=== PATIENT | female | born 1960 | race Caucasian/White ===

== ENCOUNTER 2020-07-04 10:52 | Emergency (ER) | payer BC, SELFPAY ==
[2020-07-04] VITALS (11 sets, daily range): BP systolic 117–149; BP diastolic 55–67; PULSE 75–91; RESP 14–20; TEMP 37.2–38.3; O2SAT 94–100; BMI 29.6
[2020-07-04 11:32] LABS: Bacteria Urine Many (>30); Culture Indicated Urine Cult Not Indicated; RBC Urine 5-10/HPF (0-5/HPF); Squamous Epithelial Cell Urine 1-5 /HPF (0-5/HPF); WBC Urine 0-1/HPF (0-5/HPF)
[2020-07-04 11:35] LABS: Add Manual Diff / Slide Review NO; Basophils Absolute Auto 100 /uL (0-100); Basophils Percent Auto 0.9 % (0-2); Eosinophils Absolute Auto 0 /uL (0-450); Eosinophils Percent Auto 0.1 % (2-4); Hematocrit 40.9 % (36-46); Hemoglobin 13.8 g/dL (12.0-16.0); Lymphocytes Absolute Auto 1500 /uL (1100-4500); Lymphocytes Percent Auto 9.7 % (25-40); Mean Corpuscular HGB Conc 33.8 % (30-36); Mean Corpuscular Hemoglobin 31.2 PG (26-34); Mean Corpuscular Volume 92.2 fL (80-100); Monocytes Absolute Auto 1100 /uL (0-900); Neutrophils Absolute Auto 13000 /uL (1500-7000); Neutrophils Percent Auto 82.3 % (50-75); Platelet Count 278 X10^3/uL (150-400); Red Blood Cell Count 4.43 X10^6/uL (4.0-5.2); Red Cell Distribution Width 12.7 % (11.6-14.8); White Blood Cell Count 15.8 X10^3/uL (4.5-11.0)
[2020-07-04 11:38] LABS: Lactate (Lactic Acid) 1.8 mmol/L (0.7-2.1)
[2020-07-04 11:39] LABS: Alanine Aminotransferase 34 IU/L (<35); Albumin 4.4 g/dL (3.5-5.0); Albumin Globulin Ratio 1.3 (1.0-2.8); Alkaline Phosphatase 97 U/L (38-126); Amylase 55 U/L (30-110); Aspartate Aminotransferase 30 IU/L (14-36); BUN Creatinine Ratio 21.8 (6-22); Bilirubin Total 0.7 mg/dL (0.2-1.3); Blood Urea Nitrogen 17 mg/dL (7-17); Calcium 9.5 mg/dL (8.4-10.2); Carbon Dioxide 26 mmol/L (22-32); Chloride 103 mmol/L (98-107); Estimated Glomerular Filt Rate > 60.0 mL/min (>60); Globulin 3.3 g/dL (1.7-4.1); Glucose 111 mg/dL (70-100); HEMOLYSIS < 15 (0-50); Lipase 38 U/L (23-300); Sodium 137 mmol/L (137-145); Total Protein 7.7 g/dL (6.3-8.2)
--- NOTE | 2020-07-04 11:47 | ED.FEMALEGU ---
HPI - Female Genitourinary <CHAPARRO Kendrick-BC - Last Filed: 07/04/20 17:58> General Chief complaint: Urogenital-Female Stated complaint: lower back pain,right side Time Seen by Provider: 07/04/20 11:13 Source: patient and family Mode of arrival: Ambulatory Limitations: no limitations History of Present Illness HPI Narrative: The patient is a 59-year-old female with history of depression who presents with her for chief complaint of right-sided lower back pain. Started about 4 days ago, radiates around her right side lower abdomen. She denies any fevers, nausea vomiting or diarrhea. She denies any muscle aches or chills. She states she is eating and drinking okay, last oral intake last night. She took Tylenol once yesterday for the pain, otherwise has not taken anything. She has a remote history of pyelonephritis, states that this feels a bit different. She denies any previous history of kidney stones, though notes that her daughter has had kidney stones. The pain radiates around her right lower abdomen. She states she does have history of a hysterectomy. Related Data Previous Rx's Medication Instructions Recorded ketorolac 10 mg PO TID PRN #15 tab 07/04/20 lidocaine 1 patch TOP DAILY PRN #15 each 07/04/20 sulfamethoxazole-trimethoprim 1 tab PO BID #14 tab 07/04/20 [Bactrim DS] Allergies Allergy/AdvReac Type Severity Reaction Status Date / Time No Known Drug Allergies Allergy Verified 07/04/20 11:02 Review of Systems <FLORES Kendrick - Last Filed: 07/04/20 17:58> Review of Systems Narrative: GENERAL: Denies chills, fatigue, malaise, fever, sweats. HEENT: Denies sinus pain, ear pain, sore throat, difficulty swallowing, dizziness. RESPIRATORY: Denies dyspnea, cough, wheezing, hemoptysis, sputum. CARDIOVASCULAR: Denies chest pain, palpitations, orthopnea, edema, GASTROINTESTINAL: See HPI : See HPI MUSCULOSKELETAL: denies weakness, joint pain, or bony pain SKIN: Denies rash, skin lesions, or other NEUROLOGIC: Denies weakness, headache, numbness, change in speech, confusion, seizures, incoordination. PSYCHIATRIC: No concerning psychosocial issues. 12 point review of systems is negative except for those stated above Patient History <LOUISE Kendrick - Last Filed: 07/04/20 17:58> Medical History (Updated 07/04/20 @ 15:53 by LOUISE Kendrick) Depression (Acute) History of pyelonephritis (Acute) Surgical History (Updated 07/04/20 @ 11:50 by LOUISE Kendrick) History of hysterectomy (Acute) alcohol intake frequency: holidays/special occasions only Substance Use Type: does not use Exam <LOUISE Kendrick - Last Filed: 07/04/20 17:58> Narrative Exam Narrative: GENERAL: This is a well-nourished, well-developed patient, in no acute distress HEAD: Atraumatic. Normocephalic. No temporal or scalp tenderness. EYES: Pupils equal round and reactive. Extraocular motions intact. No scleral icterus. No injection or drainage. ENT: Nose without bleeding, purulent drainage or septal hematoma. Wearing a mask. Airway patent. NECK: Trachea midline. No JVD or lymphadenopathy. Supple, nontender, no meningeal signs. CARDIOVASCULAR: Regular rate and rhythm RESPIRATORY: Clear to auscultation. Breath sounds equal bilaterally. No wheezes, rales, or rhonchi. No cough. No increased respiratory effort. No accessory muscle use. GASTROINTESTINAL: Abdomen soft, diffuse lower abdominal tenderness, nondistended. No hepato-splenomegaly, or palpable masses. Active bowel sounds all 4 quadrants. EXTREMITIES: No clubbing, cyanosis, or edema. No joint tenderness, effusion, or edema noted. BACK: Nontender without deformity or crepitance. CVA tenderness right side, no CVA tenderness left side NEURO: AOx3. SKIN: No rash or erythema on visible skin Initial Vital Signs Initial Vital Signs: Vital Signs Temperature 98.9 F 07/04/20 11:02 Pulse Rate 91 H 07/04/20 11:02 Respiratory Rate 14 07/04/20 11:02 Blood Pressure 149/67 H 07/04/20 11:02 Pulse Oximetry 97 07/04/20 11:02 <Cecilia Cast DO - Last Filed: 07/07/20 07:48> Initial Vital Signs Initial Vital Signs: Vital Signs Temperature 98.9 F 07/04/20 11:02 Pulse Rate 91 H 07/04/20 11:02 Respiratory Rate 14 07/04/20 11:02 Blood Pressure 149/67 H 07/04/20 11:02 Pulse Oximetry 97 07/04/20 11:02 Scores <LOUISE Kendrick - Last Filed: 07/04/20 17:58> GCS Adrienne coma scale eye opening: Spontaneous [place] coma scale verbal response: Orientated Adrienne coma scale motor response: Obey commands [place] coma scale total score: 15 Course <LOUISE Kendrick - Last Filed: 07/04/20 17:58> Orders Ordered: Discontinued Medications Ketorolac Tromethamine (Toradol) 30 mg IV NOW ONE Stop: 07/04/20 13:05 Last Admin: 07/04/20 13:14 Dose: 30 mg Documented by: ROSEMARY Lidocaine (Lidoderm) 1 each TOP NOW ONE Stop: 07/04/20 13:05 Last Admin: 07/04/20 13:15 Dose: 1 each Documented by: ROSEMARY Vital Signs Vital signs: Vital Signs - 8 hr 07/04/20 11:02 07/04/20 11:03 07/04/20 11:04 Temperature 98.9 F Pulse Rate 91 H 85 82 Respiratory Rate 14 Blood Pressure 149/67 H 139/58 L Pulse Oximetry 97 100 98 07/04/20 11:30 07/04/20 11:34 07/04/20 12:00 Temperature Pulse Rate 81 76 77 Respiratory Rate 19 20 Blood Pressure 147/66 H 137/62 Pulse Oximetry 98 99 98 07/04/20 12:30 07/04/20 13:00 07/04/20 13:30 Temperature Pulse Rate 75 77 82 Respiratory Rate Blood Pressure 143/66 H 137/62 127/59 L Pulse Oximetry 99 97 94 07/04/20 14:00 07/04/20 16:19 Temperature 101.0 F H Pulse Rate 81 84 Respiratory Rate 18 Blood Pressure 117/55 L 128/61 Pulse Oximetry 97 98 <Cecilia Cast DO - Last Filed: 07/07/20 07:48> Orders Ordered: Discontinued Medications Ketorolac Tromethamine (Toradol) 30 mg IV NOW ONE Stop: 07/04/20 13:05 Last Admin: 07/04/20 13:14 Dose: 30 mg Documented by: ROSEMARY Lidocaine (Lidoderm) 1 each TOP NOW ONE Stop: 07/04/20 13:05 Last Admin: 07/04/20 13:15 Dose: 1 each Documented by: ROSEMARY Vital Signs Vital signs: Vital Signs - 8 hr 07/04/20 11:02 07/04/20 11:03 07/04/20 11:04 Temperature 98.9 F Pulse Rate 91 H 85 82 Respiratory Rate 14 Blood Pressure 149/67 H 139/58 L Pulse Oximetry 97 100 98 07/04/20 11:30 07/04/20 11:34 07/04/20 12:00 Temperature Pulse Rate 81 76 77 Respiratory Rate 19 20 Blood Pressure 147/66 H 137/62 Pulse Oximetry 98 99 98 07/04/20 12:30 07/04/20 13:00 07/04/20 13:30 Temperature Pulse Rate 75 77 82 Respiratory Rate Blood Pressure 143/66 H 137/62 127/59 L Pulse Oximetry 99 97 94 07/04/20 14:00 07/04/20 16:19 Temperature 101.0 F H Pulse Rate 81 84 Respiratory Rate 18 Blood Pressure 117/55 L 128/61 Pulse Oximetry 97 98 MDM - Female Genitourinary <CHARISSE KendrickP- - Last Filed: 07/04/20 17:58> Differential Diagnosis Differential diagnosis: Likely urinary tract infection and ovarian cyst Lab Data Attestation: I reviewed the patient's lab results. Result diagrams: 07/04/20 11:15 07/04/20 11:15 Labs: Lab Results 07/04/20 07/04/20 07/04/20 Range/Units 10:58 11:15 11:15 WBC (4.5-11.0) X10^3/uL RBC (4.0-5.2) X10^6/uL Hgb (12.0-16.0) g/dL Hct (36-46) % MCV (80-100) fL MCH (26-34) PG MCHC (30-36) % RDW (11.6-14.8) % Plt Count (150-400) X10^3/uL Neut % (Auto) (50-75) % Lymph % (Auto) (25-40) % Levy % (Auto) (3-14) % Eos % (Auto) (2-4) % Baso % (Auto) (0-2) % Neut # (Auto) (4618-1126) /uL Lymph # (Auto) (3411-8344) /uL Levy # (Auto) (0-900) /uL Eos # (Auto) (0-450) /uL Baso # (Auto) (0-100) /uL Sodium (137-145) mmol/L Potassium (3.4-5.1) mmol/L Chloride (98-107) mmol/L Carbon Dioxide (22-32) mmol/L BUN (7-17) mg/dL Creatinine (0.52-1.04) mg/dL Estimated GFR (>60) mL/min BUN/Creatinine Ratio (6-22) Glucose (70-100) mg/dL Lactate 1.8 (0.7-2.1) mmol/L Calcium (8.4-10.2) mg/dL Total Bilirubin (0.2-1.3) mg/dL AST (14-36) IU/L ALT (<35) IU/L Alkaline Phosphatase (38-126) U/L Total Protein (6.3-8.2) g/dL Albumin (3.5-5.0) g/dL Globulin (1.7-4.1) g/dL Albumin/Globulin Ratio (1.0-2.8) Amylase (30-110) U/L Lipase (23-300) U/L CA 125 Antigen (0-35) U/mL Procalcitonin < 0.05 (<0.5) ng/mL Urine RBC 5-10/hpf H (0-5/HPF) Urine WBC 0-1/hpf (0-5/HPF) Ur Squamous Epith Cells 1-5 /hpf (0-5/HPF) Urine Bacteria Many (>30) H (None) Ur Culture Indicated? Cult not indicated 07/04/20 07/04/20 07/04/20 Range/Units 11:15 11:15 11:15 WBC 15.8 H (4.5-11.0) X10^3/uL RBC 4.43 (4.0-5.2) X10^6/uL Hgb 13.8 (12.0-16.0) g/dL Hct 40.9 (36-46) % MCV 92.2 (80-100) fL MCH 31.2 (26-34) PG MCHC 33.8 (30-36) % RDW 12.7 (11.6-14.8) % Plt Count 278 (150-400) X10^3/uL Neut % (Auto) 82.3 H (50-75) % Lymph % (Auto) 9.7 L (25-40) % Levy % (Auto) 7.0 (3-14) % Eos % (Auto) 0.1 L (2-4) % Baso % (Auto) 0.9 (0-2) % Neut # (Auto) 95051 H (2630-4039) /uL Lymph # (Auto) 1500 (0944-7846) /uL Levy # (Auto) 1100 H (0-900) /uL Eos # (Auto) 0 (0-450) /uL Baso # (Auto) 100 (0-100) /uL Sodium 137 (137-145) mmol/L Potassium 4.0 (3.4-5.1) mmol/L Chloride 103 (98-107) mmol/L Carbon Dioxide 26 (22-32) mmol/L BUN 17 (7-17) mg/dL Creatinine 0.78 (0.52-1.04) mg/dL Estimated GFR > 60.0 (>60) mL/min BUN/Creatinine Ratio 21.8 (6-22) Glucose 111 H (70-100) mg/dL Lactate (0.7-2.1) mmol/L Calcium 9.5 (8.4-10.2) mg/dL Total Bilirubin 0.7 (0.2-1.3) mg/dL AST 30 (14-36) IU/L ALT 34 (<35) IU/L Alkaline Phosphatase 97 (38-126) U/L Total Protein 7.7 (6.3-8.2) g/dL Albumin 4.4 (3.5-5.0) g/dL Globulin 3.3 (1.7-4.1) g/dL Albumin/Globulin Ratio 1.3 (1.0-2.8) Amylase 55 (30-110) U/L Lipase 38 (23-300) U/L CA 125 Antigen (0-35) U/mL Procalcitonin (<0.5) ng/mL Urine RBC (0-5/HPF) Urine WBC (0-5/HPF) Ur Squamous Epith Cells (0-5/HPF) Urine Bacteria (None) Ur Culture Indicated? 07/04/20 Range/Units 11:15 WBC (4.5-11.0) X10^3/uL RBC (4.0-5.2) X10^6/uL Hgb (12.0-16.0) g/dL Hct (36-46) % MCV (80-100) fL MCH (26-34) PG MCHC (30-36) % RDW (11.6-14.8) % Plt Count (150-400) X10^3/uL Neut % (Auto) (50-75) % Lymph % (Auto) (25-40) % Levy % (Auto) (3-14) % Eos % (Auto) (2-4) % Baso % (Auto) (0-2) % Neut # (Auto) (3647-8101) /uL Lymph # (Auto) (0135-4985) /uL Levy # (Auto) (0-900) /uL Eos # (Auto) (0-450) /uL Baso # (Auto) (0-100) /uL Sodium (137-145) mmol/L Potassium (3.4-5.1) mmol/L Chloride (98-107) mmol/L Carbon Dioxide (22-32) mmol/L BUN (7-17) mg/dL Creatinine (0.52-1.04) mg/dL Estimated GFR (>60) mL/min BUN/Creatinine Ratio (6-22) Glucose (70-100) mg/dL Lactate (0.7-2.1) mmol/L Calcium (8.4-10.2) mg/dL Total Bilirubin (0.2-1.3) mg/dL AST (14-36) IU/L ALT (<35) IU/L Alkaline Phosphatase (38-126) U/L Total Protein (6.3-8.2) g/dL Albumin (3.5-5.0) g/dL Globulin (1.7-4.1) g/dL Albumin/Globulin Ratio (1.0-2.8) Amylase (30-110) U/L Lipase (23-300) U/L CA 125 Antigen < 5.5 (0-35) U/mL Procalcitonin (<0.5) ng/mL Urine RBC (0-5/HPF) Urine WBC (0-5/HPF) Ur Squamous Epith Cells (0-5/HPF) Urine Bacteria (None) Ur Culture Indicated? Urine Dip Bedside Urine Glucose Negative Bedside Urine Bilirubin - Negative Bedside Urine Ketone - Negative Urine Specific [place] 1.015 Bedside Urine Occult Blood ++ Bedside Urine pH 7.0 Bedside Urine Protein +/- 15 Bedside Urine Urobilinogen - Negative Bedside Urine Nitrite - Negative Bedside Urine Leukocytes - Negative Esterase Imaging Data US - TOP LIFT CUTTER: Radiologist's Impression: [address] [place] [id number] Ultrasound Report Signed Patient: Sepideh Broderick [facility]#: [id number] : 1960Acct:[id number] Age/Sex: 59 / FDate of Service: 07/04/20 Loc: ED Accession Number: [id number] Procedure: US pelvic complete Ordering Provider: Larissa Araujo-CANDICE PROCEDURE: US PELVIC COMPLETE INDICATIONS: l adnexal mass TECHNIQUE: Real-time scanning was performed of the pelvic organs, with image documentation. Additional endovaginal scanning was necessary due to incomplete visualization of the adnexal and endometrial structures by transabdominal scanning. COMPARISON: [facility], CT, CT ABDOMEN PELVIS W CON, 07/04/2020, 12:14. FINDINGS: Transabdominal scanning: Limited scanning through the kidneys shows no hydronephrosis. No pathologic free abdominal or pelvic fluid. Endovaginal scanning: Uterus: Uterus is surgically absent. Ovaries: The right ovary measures 2.2 x 1.2 x 1.1 cm. At the left adnexa there is a large complex septated cystic mass measuring up to 7.2 x 5.7 x 5.9 cm. No normal ovarian tissue is found. No peritoneal mass or abnormal free fluid within the peritoneal space is seen. IMPRESSION: Complex cystic and septated mass at the left adnexa as seen on CT scanning earlier same day. No evidence of adenopathy or peritoneal free fluid is found. This structure measures up to 7.2 cm in maximal dimension. Normal postmenopausal right ovary noted. Prior hysterectomy. Gynecological surgical consultation is recommended. Dictated by: Mendoza Douglass M.D. on 07/04/2020 at 15:03 Approved by: Mendoza Douglass M.D. on 07/04/2020 at 15:06 CT scan - abdomen/pelvis: Radiologist's Impression: [address] [place] [address] [id number] [address] Scan Report Signed Patient: Sepideh Broderick [facility]#: [id number] : 1960Acct:[id number] Age/Sex: 59 / FDate of Service: 07/04/20 Loc: ED Accession Number: [id number] Procedure: CT abdomen pelvis w con Ordering Provider: Larissa Araujo SURGICAL SPECIALIST- PROCEDURE: CT ABDOMEN PELVIS W CON INDICATIONS: Right flank pain. Right lower quadrant abdominal pain TECHNIQUE: After the administration of intravenous contrast, 5 mm thick sections acquired from the diaphragm to the symphysis. 5 mm coronal and sagittal reformats were acquired. For radiation dose reduction, the following was used: automated exposure control, adjustment of mA and/or kV according to patient size. COMPARISON: None. FINDINGS: Image quality: Excellent. ABDOMEN: Lung bases: Lung bases are clear. Heart size is normal. Solid organs: Liver is normal in size and enhancement, and the liver shows a pattern of radiodensity consistent with moderate fatty infiltration. Gallbladder appears normal . Biliary system is non dilated. Pancreas enhances normally. Spleen is normal in size and enhancement. No adrenal nodules. Kidneys demonstrate normal size and enhancement, without hydronephrosis. There are several small renal cortical cysts and the largest cyst is present at the posterior right kidney superiorly, measuring up to 2.9 cm. There is a 2 mm nonobstructive calculus at a posterior calyx of the right lower kidney. Peritoneum and bowel: Bowel loops demonstrate normal wall thickness and caliber. No free fluid or air. Nodes and vessels: No retroperitoneal or mesenteric adenopathy by size criteria. Aorta and inferior vena cava are normal in size. Miscellaneous: No ventral hernias. PELVIS: Genitourinary: Bladder wall thickness is normal. There is a potentially malignant complex cystic mass involving the left adnexa, measuring up to 6.8 cm AP, 5.7 cm transverse and up to 5.7 cm craniocaudad. This is separate from the adjacent bladder which it impinges upon. Miscellaneous: No inguinal hernias or adenopathy. A normal appendix is found right lower quadrant. Source of right-sided pain in this area is not seen. Bones: No suspicious bony lesions. No vertebral body compression fractures. IMPRESSION: Potentially malignant complex cystic mass left adnexa, measuring up to 6.8 cm in maximal dimension. Gynecological surgical consultation is recommended. Ovarian carcinoma is a likely cause. No evidence of metastatic disease. Normal appendix found right lower quadrant, mild colonic diverticulosis without acute diverticulitis. Fatty infiltration throughout the liver, mild. 2 mm nonobstructive right kidney lower collecting system calculus Dictated by: Mendoza Douglass M.D. on 07/04/2020 at 12:40 Approved by: Mendoza Douglass M.D. on 07/04/2020 at 12:48 [facility] Narrative Medical decision making narrative: The patient is a 59-year-old female who presents with a chief complaint of right-sided flank pain radiating around to her right lower quadrant. She has slight hematuria on her urinalysis, combined with many bacteria. She is concerned about kidney infection as this was similar to her presentation with previous episode of pyelonephritis. Given her leukocytosis to 16, did obtain a CT which shows no evidence of stone, appendicitis, diverticulitis or other acute abdominal etiology. Given her flank pain, bacteria in urine, hematuria we will treat her for an infection with Bactrim at this point time. However her CT did show an unusual left adnexal mass. I spoke with Dr. Guadalupe on-call OBGYN who requested that I add CA 125 an HR4 for her labs. This was accomplished. She also requested a pelvic ultrasound, which was completed. The patient has an appointment with Dr. Guadalupe on 07/08/2020. I discussed this at length with the patient that she has an appointment at 9:30 a.m.. She states she will attend with her . I did discuss with the patient the possibility of a malignancy, and stressed the importance of follow-up. The patient states understanding and appreciation. The patient was hemodynamically stable tolerating p.o. food and fluids during her stay in the emergency department. She did have a slight increase in her temperature to 101 prior to discharge. I offered to treat her temperature, re-evaluation etcetera but the patient requested to leave and stated she would manage it at home. The patient was started on Bactrim, given prescriptions of lidocaine patches as well as Toradol. I discussed at length coming back to the ER for any acute concerns such as abdominal pain with fever, inability keep down food or fluids etcetera. Again the patient was given the choice of further workup, evaluation medications etcetera but elected to leave. She is competent to make her own decisions at this point, states understanding. Patient has no questions or concerns upon discharge and states understanding of return precautions as well as follow-up care. <Cecilia Serene, DO - Last Filed: 07/07/20 07:48> Lab Data Labs: Lab Results 07/04/20 07/04/20 07/04/20 Range/Units 10:58 11:15 11:15 WBC (4.5-11.0) X10^3/uL RBC (4.0-5.2) X10^6/uL Hgb (12.0-16.0) g/dL Hct (36-46) % MCV (80-100) fL MCH (26-34) PG MCHC (30-36) % RDW (11.6-14.8) % Plt Count (150-400) X10^3/uL Neut % (Auto) (50-75) % Lymph % (Auto) (25-40) % Levy % (Auto) (3-14) % Eos % (Auto) (2-4) % Baso % (Auto) (0-2) % Neut # (Auto) (2248-4983) /uL Lymph # (Auto) (6012-9616) /uL Levy # (Auto) (0-900) /uL Eos # (Auto) (0-450) /uL Baso # (Auto) (0-100) /uL Sodium (137-145) mmol/L Potassium (3.4-5.1) mmol/L Chloride (98-107) mmol/L Carbon Dioxide (22-32) mmol/L BUN (7-17) mg/dL Creatinine (0.52-1.04) mg/dL Estimated GFR (>60) mL/min BUN/Creatinine Ratio (6-22) Glucose (70-100) mg/dL Lactate 1.8 (0.7-2.1) mmol/L Calcium (8.4-10.2) mg/dL Total Bilirubin (0.2-1.3) mg/dL AST (14-36) IU/L ALT (<35) IU/L Alkaline Phosphatase (38-126) U/L Total Protein (6.3-8.2) g/dL Albumin (3.5-5.0) g/dL Globulin (1.7-4.1) g/dL Albumin/Globulin Ratio (1.0-2.8) Amylase (30-110) U/L Lipase (23-300) U/L CA 125 Antigen (0-35) U/mL Procalcitonin < 0.05 (<0.5) ng/mL Urine RBC 5-10/hpf H (0-5/HPF) Urine WBC 0-1/hpf (0-5/HPF) Ur Squamous Epith Cells 1-5 /hpf (0-5/HPF) Urine Bacteria Many (>30) H (None) Ur Culture Indicated? Cult not indicated 07/04/20 07/04/20 07/04/20 Range/Units 11:15 11:15 11:15 WBC 15.8 H (4.5-11.0) X10^3/uL RBC 4.43 (4.0-5.2) X10^6/uL Hgb 13.8 (12.0-16.0) g/dL Hct 40.9 (36-46) % MCV 92.2 (80-100) fL MCH 31.2 (26-34) PG MCHC 33.8 (30-36) % RDW 12.7 (11.6-14.8) % Plt Count 278 (150-400) X10^3/uL Neut % (Auto) 82.3 H (50-75) % Lymph % (Auto) 9.7 L (25-40) % Levy % (Auto) 7.0 (3-14) % Eos % (Auto) 0.1 L (2-4) % Baso % (Auto) 0.9 (0-2) % Neut # (Auto) 43393 H (4390-0727) /uL Lymph # (Auto) 1500 (3543-8248) /uL Levy # (Auto) 1100 H (0-900) /uL Eos # (Auto) 0 (0-450) /uL Baso # (Auto) 100 (0-100) /uL Sodium 137 (137-145) mmol/L Potassium 4.0 (3.4-5.1) mmol/L Chloride 103 (98-107) mmol/L Carbon Dioxide 26 (22-32) mmol/L BUN 17 (7-17) mg/dL Creatinine 0.78 (0.52-1.04) mg/dL Estimated GFR > 60.0 (>60) mL/min BUN/Creatinine Ratio 21.8 (6-22) Glucose 111 H (70-100) mg/dL Lactate (0.7-2.1) mmol/L Calcium 9.5 (8.4-10.2) mg/dL Total Bilirubin 0.7 (0.2-1.3) mg/dL AST 30 (14-36) IU/L ALT 34 (<35) IU/L Alkaline Phosphatase 97 (38-126) U/L Total Protein 7.7 (6.3-8.2) g/dL Albumin 4.4 (3.5-5.0) g/dL Globulin 3.3 (1.7-4.1) g/dL Albumin/Globulin Ratio 1.3 (1.0-2.8) Amylase 55 (30-110) U/L Lipase 38 (23-300) U/L CA 125 Antigen (0-35) U/mL Procalcitonin (<0.5) ng/mL Urine RBC (0-5/HPF) Urine WBC (0-5/HPF) Ur Squamous Epith Cells (0-5/HPF) Urine Bacteria (None) Ur Culture Indicated? 07/04/20 Range/Units 11:15 WBC (4.5-11.0) X10^3/uL RBC (4.0-5.2) X10^6/uL Hgb (12.0-16.0) g/dL Hct (36-46) % MCV (80-100) fL MCH (26-34) PG MCHC (30-36) % RDW (11.6-14.8) % Plt Count (150-400) X10^3/uL Neut % (Auto) (50-75) % Lymph % (Auto) (25-40) % Levy % (Auto) (3-14) % Eos % (Auto) (2-4) % Baso % (Auto) (0-2) % Neut # (Auto) (8247-8334) /uL Lymph # (Auto) (0359-5720) /uL Levy # (Auto) (0-900) /uL Eos # (Auto) (0-450) /uL Baso # (Auto) (0-100) /uL Sodium (137-145) mmol/L Potassium (3.4-5.1) mmol/L Chloride (98-107) mmol/L Carbon Dioxide (22-32) mmol/L BUN (7-17) mg/dL Creatinine (0.52-1.04) mg/dL Estimated GFR (>60) mL/min BUN/Creatinine Ratio (6-22) Glucose (70-100) mg/dL Lactate (0.7-2.1) mmol/L Calcium (8.4-10.2) mg/dL Total Bilirubin (0.2-1.3) mg/dL AST (14-36) IU/L ALT (<35) IU/L Alkaline Phosphatase (38-126) U/L Total Protein (6.3-8.2) g/dL Albumin (3.5-5.0) g/dL Globulin (1.7-4.1) g/dL Albumin/Globulin Ratio (1.0-2.8) Amylase (30-110) U/L Lipase (23-300) U/L CA 125 Antigen < 5.5 (0-35) U/mL Procalcitonin (<0.5) ng/mL Urine RBC (0-5/HPF) Urine WBC (0-5/HPF) Ur Squamous Epith Cells (0-5/HPF) Urine Bacteria (None) Ur Culture Indicated? Urine Dip Bedside Urine Glucose Negative Bedside Urine Bilirubin - Negative Bedside Urine Ketone - Negative Urine Specific [place] 1.015 Bedside Urine Occult Blood ++ Bedside Urine pH 7.0 Bedside Urine Protein +/- 15 Bedside Urine Urobilinogen - Negative Bedside Urine Nitrite - Negative Bedside Urine Leukocytes - Negative Esterase Discharge Plan Departure Patient Disposition: Home Clinical Impression: Mass of left ovary, Acute UTI, Calculus, renal, Renal cyst Discharge Date/Time: 07/04/20 16:20 Instructions: DI for Urinary Tract Infection (UTI) Activity Restrictions/Additional Instructions: Thank you for trusting us with your care today. As discussed, you had blood bacteria in her urine. Thus we are treating you for urinary tract infection. I sent this prescription to [facility] in [place]. Please take this with probiotic or yogurt. This can help prevent antibiotic associated diarrhea. Please monitor for worsening flank pain, fever, inability keep down fluids. We are doing a urine culture and will call you if we need to change your antibiotics. I also sent to medications for pain, ketorolac or Toradol and lidocaine patches. I have given you a prescription of Toradol. This is an NSAID. Do not combine it with other NSAIDs such as Aleve or ibuprofen. I suggest taking it with some food, as it can irritate your stomach. We also found a a 2 mm stone in your right kidney. This should not be causing pain at this point. The CT shows some kidney cysts as well. However I believe the cause of your pain is likely the urinary tract infection. As discussed, we did find a potentially malignant left ovarian mass. We did a pelvic ultrasound and some additional lab work per the request of Dr. Guadalupe from [facility]. You have an appointment with Dr. Guadalupe on Sunday 07/08 at 9:30 a.m.. Please also follow-up with primary care provider in the next few days. Please come back to the emergency department for any acute concerns. Prescriptions: New ketorolac 10 mg tablet 10 mg PO TID PRN (Reason: pain) Qty: 15 RF: 0 sulfamethoxazole-trimethoprim [Bactrim DS] 800-160 mg tablet 1 tab PO BID Qty: 14 RF: 0 lidocaine 5 % adhesive patch,medicated 1 patch TOP DAILY PRN (Reason: pain) Qty: 15 RF: 0 Referrals: Vinicio Nunez MD [Primary Care Provider] - Rashida Guadalupe MD [Physician] - Stand Alone Forms: Work Release Note <Cecilia Cast DO - Last Filed: 07/07/20 07:48> [facility] Attending [facility] Hospitalclaudiaature Attestation: I was immediately available in the department for consultation. Documentation has been reviewed. I agree with assessment and plan.
[2020-07-04 12:18] LABS: Procalcitonin < 0.05 ng/mL (<0.5)
--- NOTE | 2020-07-04 12:23 | DI.CT.S_ITS ---
PROCEDURE: CT ABDOMEN PELVIS W CON INDICATIONS: Right flank pain. Right lower quadrant abdominal pain TECHNIQUE: After the administration of intravenous contrast, 5 mm thick sections acquired from the diaphragm to the symphysis. 5 mm coronal and sagittal reformats were acquired. For radiation dose reduction, the following was used: automated exposure control, adjustment of mA and/or kV according to patient size. COMPARISON: None. FINDINGS: Image quality: Excellent. ABDOMEN: Lung bases: Lung bases are clear. Heart size is normal. Solid organs: Liver is normal in size and enhancement, and the liver shows a pattern of radiodensity consistent with moderate fatty infiltration. Gallbladder appears normal . Biliary system is non dilated. Pancreas enhances normally. Spleen is normal in size and enhancement. No adrenal nodules. Kidneys demonstrate normal size and enhancement, without hydronephrosis. There are several small renal cortical cysts and the largest cyst is present at the posterior right kidney superiorly, measuring up to 2.9 cm. There is a 2 mm nonobstructive calculus at a posterior calyx of the right lower kidney. Peritoneum and bowel: Bowel loops demonstrate normal wall thickness and caliber. No free fluid or air. Nodes and vessels: No retroperitoneal or mesenteric adenopathy by size criteria. Aorta and inferior vena cava are normal in size. Miscellaneous: No ventral hernias. PELVIS: Genitourinary: Bladder wall thickness is normal. There is a potentially malignant complex cystic mass involving the left adnexa, measuring up to 6.8 cm AP, 5.7 cm transverse and up to 5.7 cm craniocaudad. This is separate from the adjacent bladder which it impinges upon. Miscellaneous: No inguinal hernias or adenopathy. A normal appendix is found right lower quadrant. Source of right-sided pain in this area is not seen. Bones: No suspicious bony lesions. No vertebral body compression fractures. IMPRESSION: Potentially malignant complex cystic mass left adnexa, measuring up to 6.8 cm in maximal dimension. Gynecological surgical consultation is recommended. Ovarian carcinoma is a likely cause. No evidence of metastatic disease. Normal appendix found right lower quadrant, mild colonic diverticulosis without acute diverticulitis. Fatty infiltration throughout the liver, mild. 2 mm nonobstructive right kidney lower collecting system calculus Dictated by: Mendoza Douglass M.D. on 07/04/2020 at 12:40 Approved by: Mendoza Douglass M.D. on 07/04/2020 at 12:48
[2020-07-04] MEDS: KETOROLAC 60 MG/2 ML VIAL 30 MG IV (13:14)
[2020-07-04] MEDS: LIDOCAINE PATCH 1 EACH ADH..PATCH TOP (13:15)
--- NOTE | 2020-07-04 13:32 | DI.US.S_ITS ---
PROCEDURE: US PELVIC COMPLETE INDICATIONS: l adnexal mass TECHNIQUE: Real-time scanning was performed of the pelvic organs, with image documentation. Additional endovaginal scanning was necessary due to incomplete visualization of the adnexal and endometrial structures by transabdominal scanning. COMPARISON: [facility], CT, CT ABDOMEN PELVIS W CON, 07/04/2020, 12:14. FINDINGS: Transabdominal scanning: Limited scanning through the kidneys shows no hydronephrosis. No pathologic free abdominal or pelvic fluid. Endovaginal scanning: Uterus: Uterus is surgically absent. Ovaries: The right ovary measures 2.2 x 1.2 x 1.1 cm. At the left adnexa there is a large complex septated cystic mass measuring up to 7.2 x 5.7 x 5.9 cm. No normal ovarian tissue is found. No peritoneal mass or abnormal free fluid within the peritoneal space is seen. IMPRESSION: Complex cystic and septated mass at the left adnexa as seen on CT scanning earlier same day. No evidence of adenopathy or peritoneal free fluid is found. This structure measures up to 7.2 cm in maximal dimension. Normal postmenopausal right ovary noted. Prior hysterectomy. Gynecological surgical consultation is recommended. Dictated by: Mendoza Douglass M.D. on 07/04/2020 at 15:03 Approved by: Mendoza Douglass M.D. on 07/04/2020 at 15:06
[2020-07-04 14:29] LABS: Cancer Antigen 125 < 5.5 U/mL (0-35)
[2020-07-08 10:30] LABS: Human Epididymis Prot 4 68.1 pmol/L (0.0-105.2)
== END 2020-07-04 16:20 | disposition home or self-care (01) ==
PROVIDERS: Emergency Provider Nurse Practitioner Family; Family Provider Family Medicine; PCP Family Medicine
DX: N83.8 Other noninflammatory disorders of ovary, fallopian tube and broad ligament (principal); N39.0 Urinary tract infection, site not specified; N20.0 Calculus of kidney; N28.1 Cyst of kidney, acquired
CPT/HCPCS: 36415; 74177; 76856; 80053; 81003; 81015; 82150; 83605; 83690; 84145; 85025; 86304; 86305; 87077; 87086; 87186; 96374; 99284; J1885; Q9967

== ENCOUNTER → 2020-07-08 11:07 | Outpatient (CLI) | payer BC, SELFPAY ==
[2020-07-09 14:22] LABS: COVID19 Sendout Not Detected (Not Detect)
== END ==
PROVIDERS: Family Provider Family Medicine; PCP Family Medicine; Visit Provider Physician Assistant
DX: Z11.59 Encounter for screening for other viral diseases (principal)
CPT/HCPCS: 87635

== ENCOUNTER 2020-07-10 12:39 | Day surgery (SDC) | payer BC, SELFPAY ==
[2020-07-08 14:50] VITALS: BMI 29.2
[2020-07-10] VITALS (7 sets, daily range): BP systolic 103–132; BP diastolic 52–67; PULSE 65–74; RESP 14–30; TEMP 36.3–37.1; O2SAT 90–96; BMI 29.1
--- NOTE | 2020-07-10 | PATH_ITS ---
[facility] Accession Number: [id number] . 01 Material submitted: . ovary - BILATERAL OVARIES . 01 Clinical history: . SDC . 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 Negative for borderline tumor and malignancy. Contralateral ovary within normal limits. MRV 07/14/2020 1212 Local . 01 Electronically signed: . Amarilis Mchugh MD, Pathologist NPI- [id number] . 01 Gross description: . Received in formalin, labeled bilateral ovaries, and consists of two ovaries. The first ovary weighs 2 grams and measures 2.2 x 1.5 x 0.9 cm. The external surface is presley and cerebriform. Sectioning reveals a presley-pink ovarian stroma with multiple corpora albicantia. The second ovary weighs 14 grams and measures 5.0 x 3.0 x 2.2 cm. The external surface is presley-pink and smooth. Sectioning reveals predominantly cystic cut surfaces with minimal presley-pink ovarian stroma. The inner lining of the cysts is presley-pink and smooth with no papillary excrescences, and the wall thickness measures 0.2 cm. [employer] sections are submitted. . A1: smaller ovary, loss prevention representative section. A2-A5: larger cystic ovary. (EA:[id number]) /MRV 07/14/2020 1213 Local . 01 Pathologist provided ICD-10: D27.9 . 01 CPT . 406403 Performed at: 01 [facility] [address] [place] [id number] MD Rc Paredes MD Phone: [phone]
[2020-07-10] MEDS: LACTATED RINGERS 1,000 ML 100 ML IV ×2 (14:11→16:17)
--- NOTE | 2020-07-10 14:30 | SUR.PREOP ---
states that her depression is well managed, denies suicidal ideation.
--- NOTE | 2020-07-10 15:00 | PM.HP.1 ---
History of Present Illness History of Present Illness Date Patient Seen: 07/10/20 Time Patient Seen: 15:00 Chief complaint: SDC Narrative: Patient is a 59-year-old 4 para 4 who presents for laparoscopic bilateral salpingo-oophorectomy due to a left ovarian mass Patient History Medical History (Updated 07/09/20 @ 19:41 by Wandy Esquivel) Chicken pox (Resolved) Depression (Chronic) Hip arthritis (Chronic) History of Chambers's esophagus (Acute) History of pyelonephritis (Acute) Mumps (Resolved) Surgical History (Updated 07/09/20 @ 07:06 by Rashida Guadalupe MD) History of hysterectomy (Acute) [place] teeth extracted (Acute) Family & Social History Social History: household members spouse Tobacco & Substance use: Tobacco type cigarettes Smoking Status Former smoker Smoking packs per day 0.5 alcohol intake former alcohol intake frequency holiday/special occasion Substance Use Type does not use Meds Home Medications and Allergies Home Medications Medication Instructions Recorded Confirmed Type ketorolac 10 mg PO TID PRN #15 tab 07/04/20 07/10/20 Rx lidocaine 1 patch TOP DAILY PRN #15 each 07/04/20 07/10/20 Rx sulfamethoxazole-trimethoprim 1 tab PO BID #14 tab 07/04/20 07/10/20 Rx [Bactrim DS] citalopram 10 mg tablet 10 mg PO DAILY 07/08/20 07/10/20 History oxycodone-acetaminophen 5 mg-325 1 tab PO Q4-6H PRN #30 tab 07/08/20 07/10/20 Rx mg tablet Allergies Allergy/AdvReac Type Severity Reaction Status Date / Time No Known Drug Allergies Allergy Verified 07/10/20 13:54 Exam Vital Signs (past 8 hours): - 07/10/20 14:12 Temperature 98.7 F Pulse Rate 74 Respiratory Rate 16 Blood Pressure 113/65 Pulse Oximetry 96 Oxygen Delivery Method Room Air Narrative Exam Narrative: HEENT: No thyromegaly, no anterior cervical or supraclavicular lymphadenopathy. Lungs:Clear to auscultation bilaterally, no wheezes. Cardiovascular: Regular rate and rhythm, no murmurs, rubs, or gallops. Abdomen: Well-healed scars. No hepatosplenomegaly. No masses palpable. External genitalia: Normal Vagina: Normal Cervix: Normal Bimanual exam: 7 Week size uterus. Mobile. Rectal: No masses. Assessment & Plan Assessment & Plan narrative: Assessment: 59-year-old 4 para 4 with a left ovarian mass Normal cancer markers Plan: Laparoscopic BSO The risks, benefits, and alternatives to the procedure were explained to the patient. The risks including bleeding, infection, injury to the bowel, bladder, or ureters. She understands these risks and agrees to proceed. A full par Q was held and consent form was signed. COVID-19 COVID-19 status: Negative Result date/Date tested (Pos, Neg/Pending): 07/08/20
--- NOTE | 2020-07-10 15:02 | PM.PREOP ---
Pre-operative Note COVID-19 COVID-19 status: Negative Result date/Date tested (Pos, Neg/Pending): 07/08/20 Interval Note History & Physical reviewed/Exam performed by Physician: Yes Changes to H&P: No H&P completed within 30 days and has changed as indicated here:: 07/10/20
[2020-07-10] MEDS: BUPIVACAINE 0.5% W/ EPI (PF) 30 ML VIAL INJ (15:34)
--- NOTE | 2020-07-10 17:22 | P.OP_ITS ---
Operative Date/Time/Diagnoses Date of procedure: 07/10/20 Time of procedure: 17:22 Pre-op diagnosis: Left ovarian mass Post-op diagnosis: same Procedure & Clinicians Procedure: Procedures Operation Date: 07/10/20 14:00 Actual Procedures Side Surgeon p LAPAROSCOPIC BILATERAL OOPHORECTOMY, EXTENSIVE LYSIS OF ADHESION, PELVIC WASHINGS Bilateral Rashida Guadalupe MD Indications: Left ovarian mass Surgeon: Rashida Guadalupe Online Banking Specialist: Mk Yang Anesthesia Type: General Operative Notes Findings: 8-9 cm left ovarian cystic mass Normal right ovary Status post removal of uterus and bilateral tubes Normal liver and gallbladder Appendix not visualized Dense adhesions of both adnexa Closure Type: primary Specimen(s): other (Right and left ovaries) Estimated blood loss (mL): 10 Blood products transfused: none Procedure in detail: After informed consent was obtained, the patient was taken to the operating room where she was placed in the dorsal supine position. After adequate general endotracheal anesthesia was achieved, she was placed in the dorsal lithotomy position, and prepped and draped in the usual sterile fashion. A time-out was performed. A moistened sponge stick was placed into the vagina. Attention was then turned to the abdomen where 6 cc of 0.5% Marcaine with epinephrine were injected in the umbilical fold. A 5 mm incision was made. The Veress needle was placed into the peritoneal cavity, and its placement confirmed by aspiration and drop test. The Veress needle was removed. A 5 mm trocar was placed without difficulty. Two other incisions were made lateral to the umbilicus approximately 4 cm after 5 cc of 0.5% Marcaine with epinephrine were injected and 5 mm incisions were made. The 5 mm trocars were placed under direct visualization. Pelvic washings were obtained. The upper abdomen was visualized and the gallbladder and liver were normal. There were no adhesions in the upper abdomen. In the pelvis the uterus had been removed. There were dense adhesions in both adnexa. The appendix was not visualized due to adhesions. The right ovary was grasped with an atraumatic grasper, and using the Endo Thai the filmy adhesions were taken down. There was an adhesion be tween the small bowel and the pelvic sidewall and this was taken down with guidance from Dr. Yang. Once the right ovary was freed from adhesions it was grasped with an atraumatic grasper. The infundibulopelvic ligament on the right side was cauterized and cut with the PlasmaKinetic with settings of 40 w. Hemostasis was achieved. The ureter was identified and was found to be peristaltic after the right ovary was removed. The right ovary was placed into the cul-de-sac. Attention was then turned to the left ovary. With assistance from Dr. Yang the right ovary was freed from the bowel, omental, and sidewall adhesions with care to avoid the ureter. There was a small amount of spillage of clear to yellow fluid from the cyst on the left ovary. Once the ovary was freed of all of the adhesions, it was grasped with an atraumatic grasper and the infundibulopelvic ligament on the left side was cauterized and cut with the PlasmaKinetic. Hemostasis was achieved. 6 cc of 0.5% Marcaine with epinephrine were injected above the umbilical fold through the previous incision. A 12 mm incision was made. A 12 mm trocar was placed under direct visualization. The small endobag was placed through the suprapubic trocar. Both ovaries were placed into the bag. The bag was brought up to the end of the trocar and then the trocar and bag were removed together. The pelvis was examined and there was no bleeding noted. The small bowel that was attached to the right pelvic sidewall was examined and there was no serosal damage. The instruments were removed from the abdomen. The CO2 was allowed to escape. The trocars were removed. The suprapubic incision was closed on the fascia with 0 Vicryl. Subcutaneous layer was irrigated with warm normal saline. Two simple interrupted sutures with 3 0 Vicryl were placed in the subcutaneous layer. All of the skin incisions were closed with 4-0 Biosyn in a subcuticular fashion. Steri-Strips, 2 x 2, and op site were placed. The moistened sponge stick was removed from the vagina. A red rubber catheter was used to drain the bladder of approximately 50 cc of clear yellow urine. Sponge, lap, and instrument counts were correct x2. The patient tolerated the procedure well, and was taken to PACU in stable condition. Complications: none Post-operative Condition: stable Disposition: PACU Plan for aftercare: Home after recovery
--- NOTE | 2020-07-16 | PATH_ITS ---
Note [facility] Accession Number: [id number] TESTS RESULT FLAG UNITS REF RANGE LAB Clinician Provided Cytology Information No. of containers..01 Other (Miscellaneous) 01 PERITONEAL WASHINGS DIAGNOSIS: 01 PERITONEAL WASHINGS NEGATIVE FOR MALIGNANT CELLS. THIS INTERPRETATION INCLUDES EVALUATION OF A CELL BLOCK. Pathologist ICD10: 01 N83.209 Veronica Camara MD, Pathologist NPI- [id number] Sylvester Aguilar, Bobbin Disker ([facility]) 01 12 CC, PINK, HAZY RECEIVED: FRESH IN ORANGE CAP CONTAINER. /VDU 07/14/2020 1049 [facility] FLAG LEGEND: L-Low Normal,H-High Normal,LL-Alert Low,HH-Alert High <-Panic Low,>-Panic High,A-Abnormal,AA-Critical Abnormal Performed at: 01 =Z [facility] [address], [place] [address] Rc Paredes MD, Specimen Comment: A duplicate report has been generated due to demographic updates. Performed at: 01 [facility] [address], [place], [place] [id number] MD Rc Paredes MD Phone: [phone]
== END 2020-07-10 17:49 | disposition home or self-care (01) ==
PROVIDERS: Family Provider Family Medicine; PCP Family Medicine; Referring Provider Family Medicine; Visit Provider Obstetrics & Gynecology
PROC: 0UT74ZZ Resection of Bilateral Fallopian Tubes, Percutaneous Endoscopic Approach (ICD-10-PCS; CPT 58661; principal; 2020-07-10 14:00)
DX: N83.8 Other noninflammatory disorders of ovary, fallopian tube and broad ligament (principal); K66.0 Peritoneal adhesions (postprocedural) (postinfection); F17.210 Nicotine dependence, cigarettes, uncomplicated; D27.9 Benign neoplasm of unspecified ovary
CPT/HCPCS: 58661; J0330; J1100; J2405; J2704; J3010